=== PATIENT | male | born 1970 | race Hispanic/Latino ===

== ENCOUNTER 2016-10-03 13:24 | Inpatient (IN) | payer MEDICAID ==
--- NOTE | 2016-10-03 14:08 | Emergency Department Report ---
ED General Adult HPI - General Chief complaint: Psych Stated complaint: OVERDOSE Time Seen by Provider: 10/03/16 13:56 Source: patient, EMS (ems notes not available at time of chart dictation), RN notes reviewed Mode of arrival: Ambulatory Limitations: Other (patient is a poor historian, has difficulty answering questions) - History of Present Illness Initial comments: This is a 46-year-old male, previously unknown to me. Has a past medical history of psychiatric disease. He is brought to the hospital by EMS after overdose last ingestion. As per verbal report from the nurse received report from EMS, ingestion took place at around 12:30 PM. Patient had reported ingesting trazodone, and his other psychiatric medications. He thinks he ingested 50 tablets of trazodone but is not certain. He is unable to name the other medications that he ingested. He does endorse suicidality. The patient is unable to describe exacerbating or relieving factors. He does indicate no headache, chest pain, abdominal pain or shortness of breath. He will not state why he attempted to harm himself. -: unknown Severity scale (0 -10): 0 Consistency: constant Improves with: none Worsens with: none Associated Symptoms: loss of appetite, malaise. denies: chest pain, cough - Related Data Allergies Allergy/AdvReac Type Severity Reaction Status Date / Time No Known Allergies Allergy Unverified 10/03/16 13:35 ED Review of Systems ROS: Stated complaint: OVERDOSE Other details as noted in HPI Comment: Unobtainable due to pts medical conditions Constitutional: see HPI, malaise Psychiatric: suicidal thoughts ED Past Medical Hx - Past Medical History Previous Medical History?: Yes Hx Psychiatric Treatment: Yes (schz; bipolar; anti-social) - Surgical History Past Surgical History?: No ED Physical Exam - General Limitations: Other (patient is a poor historian, he mumbles, it is difficult to hear) General appearance: alert, in no apparent distress - Head Head exam: Present: atraumatic, normocephalic - Eye Eye exam: Present: normal appearance, EOMI. Absent: nystagmus - ENT ENT exam: Present: mucous membranes dry - Neck Neck exam: Present: normal inspection, full ROM. Absent: tenderness, meningismus - Respiratory Respiratory exam: Present: normal lung sounds bilaterally. Absent: respiratory distress, wheezes, rales, rhonchi, stridor, chest wall tenderness - Cardiovascular Cardiovascular Exam: Present: normal rhythm, tachycardia, normal heart sounds. Absent: systolic murmur, diastolic murmur, rubs, gallop - GI/Abdominal GI/Abdominal exam: Present: soft, normal bowel sounds. Absent: distended, tenderness, guarding, rebound, rigid, pulsatile mass - Rectal Rectal exam: Present: deferred - Extremities Exam Extremities exam: Present: normal inspection, full ROM, normal capillary refill. Absent: tenderness, pedal edema, joint swelling, calf tenderness - Back Exam Back exam: Present: normal inspection, full ROM. Absent: tenderness, CVA tenderness (R), CVA tenderness (L), muscle spasm, paraspinal tenderness, vertebral tenderness - Neurological Exam Neurological exam: Present: alert, other (no facial droop. Tongue midline. Extraocular movements intact bilaterally. Facial sensation intact to light touch in V1, V2, V3 distribution bilaterally. 5 and a 5 strength in 4 extremities. Sensation intact to light touch in 4 extremities.). Absent: motor sensory deficit - Psychiatric Psychiatric exam: Present: flat affect, suicidal ideation - Skin Skin exam: Present: warm, dry, intact, normal color ED Course Vital Signs 10/03/16 10/03/16 10/03/16 13:30 13:36 13:44 Temperature Pulse Rate 98 H Respiratory 14 16 Rate Blood Pressure 115/83 115/81 Blood Pressure [Left] O2 Sat by Pulse 88 95 Oximetry 10/03/16 10/03/16 10/03/16 13:45 14:21 15:13 Temperature 98.4 F Pulse Rate 102 H 111 H Respiratory 14 16 Rate Blood Pressure 115/81 Blood Pressure 115/83 [Left] O2 Sat by Pulse 88 96 100 Oximetry 10/03/16 10/03/16 10/03/16 15:16 15:25 15:30 Temperature Pulse Rate 110 H 105 H 107 H Respiratory 21 18 Rate Blood Pressure 137/95 137/95 Blood Pressure [Left] O2 Sat by Pulse 100 105 H Oximetry 10/03/16 10/03/16 10/03/16 15:45 15:48 16:00 Temperature Pulse Rate 117 H 110 H 109 H Respiratory 22 18 18 Rate Blood Pressure 161/105 161/105 149/99 Blood Pressure [Left] O2 Sat by Pulse 99 99 99 Oximetry 01/10/03/16 10/03/16 16:01 16:15 16:17 Temperature Pulse Rate 109 H 113 H 108 H Respiratory 19 Rate Blood Pressure 161/105 159/107 149/99 Blood Pressure [Left] O2 Sat by Pulse 99 99 100 Oximetry 10/03/16 10/03/16 10/03/16 16:30 16:45 17:00 Temperature Pulse Rate 117 H 114 H 108 H Respiratory 22 20 18 Rate Blood Pressure 157/112 153/102 146/88 Blood Pressure [Left] O2 Sat by Pulse 98 99 99 Oximetry 10/03/16 10/03/16 10/03/16 17:15 17:30 17:45 Temperature Pulse Rate 106 H 106 H 100 H Respiratory 19 18 18 Rate Blood Pressure 138/91 136/95 122/80 Blood Pressure [Left] O2 Sat by Pulse 100 99 100 Oximetry 10/03/16 10/03/16 10/03/16 17:48 18:00 18:15 Temperature Pulse Rate 102 H 101 H 99 H Respiratory 14 18 Rate Blood Pressure 122/80 125/85 117/83 Blood Pressure [Left] O2 Sat by Pulse 100 99 100 Oximetry 10/03/16 10/03/16 10/03/16 18:30 18:45 19:00 Temperature Pulse Rate 96 H 94 H 91 H Respiratory 18 18 18 Rate Blood Pressure 116/78 120/80 116/77 Blood Pressure [Left] O2 Sat by Pulse 100 100 99 Oximetry 10/03/16 10/03/16 10/03/16 19:15 19:28 19:30 Temperature Pulse Rate 93 H 87 86 Respiratory 17 18 18 Rate Blood Pressure 117/80 117/80 118/77 Blood Pressure [Left] O2 Sat by Pulse 100 100 99 Oximetry 10/03/16 10/03/16 10/03/16 19:45 20:00 20:05 Temperature Pulse Rate 88 86 83 Respiratory 18 14 Rate Blood Pressure 102/77 125/78 125/78 Blood Pressure [Left] O2 Sat by Pulse 100 100 100 Oximetry 10/03/16 10/03/16 10/03/16 20:15 20:30 20:45 Temperature Pulse Rate 81 80 78 Respiratory 18 18 18 Rate Blood Pressure 102/69 Blood Pressure [Left] O2 Sat by Pulse 100 100 100 Oximetry 10/03/16 21:00 Temperature Pulse Rate 78 Respiratory 19 Rate Blood Pressure 100/68 Blood Pressure [Left] O2 Sat by Pulse 100 Oximetry - Reevaluation(s) Reevaluation #1: 10/03/16 14:07 Differential diagnosis: Overdose, mood disorder, suicidality, medical clearance Assessment and plan: 46-year-old male with overdose, presented more than 60 minutes after ingestion, he is a poor historian and mumbling, not a charcoal candidate. 1013 form is filled out. He will be placed on a boat laborer, EKG is reviewed, laboratory studies are pending, physical exam is unremarkable, no history of trauma, no physical indication of trauma. Reevaluation #2: 10/03/16 14:49 Patient is reassessed. I went back to find him laying on the floor. He would not get up for me. He would not move for me. The nurse requested the patient moved, and he batted away at her with his right hand. It took 3 people the patient up off the stretcher. Patient is back on the stretcher, and is not responding to commands. He did grimace and response to painful stimuli. given change in mental status, polysubstance ingestion, fact that the patient fell, patient was moved into room 2, preoxygenated with 100% oxygen, had a nasal cannula running at 15 L/m, received abs-ptlxo-cuor ventilation, and was intubated using C-spine precautions with one attempt by myself with direct laryngoscopy. CT scan of the head and cervical spine are pending. OG tube is pending. Charcoal was ordered. Laboratory studies ordered and are pending. Case is discussed with critical care, Dr. Santamaria, who authorizes degrees the patient to be admitted to the ICU. Once his laboratory studies have returned, we will contact the Poison Control Center for specific recommendations. Reevaluation #3: 10/03/16 15:40 ct head and c spine negative xr chest wnl xr abdomen shows no bezoar d/w [place] at [place] Poison control [facility], agrees with supportive care, no specific antidote and [facility] patient to his service 10/03/16 15:43 10/03/16 15:43 - EJ/Peripheral Line Arm R Time Out Performed: Yes Indications: multiple IV sites needed Skin Cleansed in Sterile Fashion: Yes Size: 16 Dressing Placed: Tegaderm Patient Tolerated Procedure: well - Intubation Time Out Performed: No (emergent) Sedative: Etomidate Mg Given: 20 Paralytic: Rocuronium Mg Given: 100 Laryngoscope: Nikky Size: 4 ET Tube Size: 7.5 Other Airway Intervention: bvm, passive apneic oxygenation Tube Secured Location: teeth Tube Placement Confirmation: visualized tube passing t Patient Tolerated Procedure: well Intubation Complications: none ED Medical Decision Making - Lab Data Result diagrams: 10/04/16 07:55 10/04/16 07:55 Vital Signs 10/03/16 10/03/16 13:36 13:45 Temperature 98.4 F Pulse Rate 102 H Respiratory 14 Rate Blood Pressure 115/83 Blood Pressure 115/83 [Left] O2 Sat by Pulse 88 Oximetry - EKG Data 10/03/16 14:07 normal sinus, 99 bpm, QTC 467 ms, not consistent with STEMI. Motion artifact. A prior for comparison. - Radiology Data Radiology results: report reviewed, image reviewed Noncontrast CT scan of the head and cervical spine are negative. X-ray chest negative, endotracheal tube is in appropriate position. X-ray of abdomen demonstrates no obvious disorder. Constipation is suggested. Critical Care Time: Yes Critical care time in (mins) excluding proc time.: 60 Critical care attestation.: If time is entered above; I have spent that time in minutes in the direct care of this critically ill patient, excluding procedure time. Critical Care Time: Critical care time includes multiple bedside evaluations, interpretation of laboratory studies, radiology studies, time spent managing a patient with altered mental status and polysubstance ingestion requiring consultation with critical care, toxicology, hospital medicine. This excludes procedure time. ED Disposition Clinical Impression: Overdose Qualifiers: Encounter type: initial encounter Injury intent: intentional self-harm Qualified Code(s): T50.902A - Poisoning by unspecified drugs, medicaments and biological substances, intentional self-harm, initial encounter Disposition: OP ADMITTED IP TO THIS HOSP Is pt being admited?: Yes Condition: Critical
[2016-10-03] MEDS ORDERED: NACL 0.9% 1000 ML 2,000 ML ONE (14:09)
[2016-10-03] MEDS ORDERED: AMIDATE IV ONE ×2 (14:15→14:44)
[2016-10-03] MEDS ORDERED: ZEMURON IV ONE ×2 (14:15→14:44)
[2016-10-03] MEDS ORDERED: SUBLIMAZE IV ONE (14:44)
[2016-10-03] MEDS ORDERED: VASELINE LIP THERAPY TP PRN (14:44)
[2016-10-03] MEDS ORDERED: ARTIFICIAL TEARS OPHTH OINT OU PRN (14:44)
[2016-10-03] MEDS ORDERED: ACTIDOSE-AQUA FEEDTUBE ONE (14:44)
[2016-10-03] MEDS ORDERED: NACL 0.9% 500 ML IV SCH (15:00)
[2016-10-03 15:06] LABS: Basophils % (Auto) 0.9 % (0.0-1.8); Eosinophils % (Auto) 0.8 % (0.0-4.3); Hematocrit 38.6 % (35.5-45.6); Hemoglobin 12.6 gm/dl (11.8-15.2); Mean Corpuscular HGB Conc 33 % (32-34); Mean Corpuscular Hemoglobin 28 pg (28-32); Mean Corpuscular Volume 87 fl (84-94); Platelet Count 317 K/mm3 (140-440); Red Blood Count 4.43 M/mm3 (3.65-5.03); Red Cell Distribution Width 14.5 % (13.2-15.2)
--- NOTE | 2016-10-03 15:07 | Admit Criteria Form ---
Admission Criteria Documentation: DRUG INGESTION OR OVERDOSE Clinical Indications for Admission to Inpatient Care ( Place 'X' for any and all applicable criteria): Admission is indicated for severe toxicity as indicated by ANY ONE of the following(1)(2)(3)(4)(5)(6): [ X]I. Inpatient admission required rather than observation care (Also use Drug Ingestion or Overdose: Observation Care guideline as appropriate) because of ANY ONE of the following: [X ]a) Altered mental status that is severe or persistent [X ]b) Clinical finding (eg, metabolic acidosis, hypoglycemia, bradycardia) that is severe or persistent [ ]c) Toxic drug level that is persistent [X ]d) Psychiatric risk status not acceptable for outpatient management [ ]e) Continuous intravenous infusion of anticoagulation, platelet inhibitor, vasoactive, or antiarrhythmic medication (15)(16) [X ]f) Other condition, treatment or monitoring requiring inpatient admission [X ]II. Respiratory abnormalities [ ]III. Specific finding indicating severe and likely prolonged drug toxicity [ ]IV. Hemodynamic instability [ ]V. Dangerous arrhythmia [ ]. Hypertension requiring inpatient treatment Extended stay beyond goal length of stay may be needed for (4): [ ]a) Neurologic or respiratory compromise [ ]b) Hemodynamic instability [ ]c) Persistent toxic drug levels (25) [ ]d) Severe drug toxicities or complications [ ]e) Ongoing antidote treatment (eg, acetaminophen overdose)(5) [ ]f) Older patients(65 years or older) The original [employer] content created by [employer] has been revised. The portions of the content which have been revised are identified through the use of italic text or in bold, and [facility] has neither reviewed nor approved the modified material. All other unmodified content is copyright [employer] license of [facility] [employer]. Please see references footnoted in the original [employer] [facility] edition 2016 Admission Criteria Met: Yes
--- NOTE | 2016-10-03 15:28 | Cat Scan Report ---
CT HEAD WITHOUT CONTRAST: HISTORY: Altered mental status. Serial contiguous axial images were obtained through the cranium. Intravenous contrast material was not administered. The ventricles are normal in size and appearance. There is no mass effect or midline shift. No areas of abnormally increased or decreased attenuation are seen. No mass lesion is seen. The mastoid air cells and visualized portions of the sinuses are normal. IMPRESSION: Cranial CT scan within normal limits.
[2016-10-03 15:29] LABS: Alanine Aminotransferase 16 units/L (7-56); Albumin 4.1 g/dL (3.9-5); Albumin/Globulin Ratio 1.5 %; Alkaline Phosphatase 76 units/L (35-129); BUN/Creatinine Ratio 23.75; Bilirubin,Total 0.4 mg/dL (0.1-1.2); Blood Urea Nitrogen 19 mg/dL (9-20); Calcium 8.5 mg/dL (8.4-10.2); Carbon Dioxide 22 mmol/L (22-30); Chloride 99.9 mmol/L (98-107); Glucose 109 mg/dL (75-100); Lithium 0.1 mmol/L (0.0-1.2); Magnesium 2.2 mg/dL (1.7-2.3); Sodium 139 mmol/L (137-145); Total Protein 6.8 g/dL (6.3-8.2)
--- NOTE | 2016-10-03 15:29 | Cat Scan Report ---
CT SCAN OF THE CERVICAL SPINE: TECHNIQUE: Contiguous 1.25 mm axial images of the cervical spine were obtained. Sagittal and coronal reformatted images. FINDINGS: There is normal alignment of the cervical spine. The body, pedicles and posterior ligaments appear normal. No evidence of fracture or subluxation is seen. Minimal degenerative disc disease at C5-6 is noted. The spinal canal appears normal. The prevertebral soft tissues appear normal. IMPRESSION: Degenerative disc disease at C5-6. No acute process is noted.
[2016-10-03 15:30] LABS: Salicylate < 0.3 mg/dL (2.8-20.0); Valproate < 2.8 ug/mL (50-100)
[2016-10-03 15:31] LABS: Anion Gap 21 mmol/L
--- NOTE | 2016-10-03 15:36 | XRay Report ---
AP CHEST: HISTORY: Endotracheal tube placement. The endotracheal tube terminates 5 cm superior to liane. There is poor inspiration with mild bibasilar atelectasis, otherwise, the lungs are clear. Normal heart size and pulmonary vascularity. The nasogastric tube terminates just beyond the GE junction. Advancement is recommended by 10 cm. IMPRESSION: Endotracheal tube and nasogastric tube as described Mild bibasilar atelectasis.
[2016-10-03 15:50] LABS: Urine Drugs of Abuse Note Disclamer
--- NOTE | 2016-10-03 15:51 | XRay Report ---
KUB: There is scattered mild gaseous distention of multiple bowel loops. Small amount of fecal matter is identified in the proximal colon. There is no free air no soft tissue mass. No foreign body identified. Impression: Nonspecific bowel gas findings. No foreign body.
[2016-10-03 16:03] LABS: Bilirubin,Urine NEG (Negative); Blood,Urine NEG (Negative); Ketones,Urine 20 mg/dL (Negative); Leukocyte Esterase,Urine NEG (Negative); Mucus,Urine 3+ /HPF; Nitrite,Urine NEG (Negative); Protein,Urine <15 mg/dL mg/dL (Negative); Urobilinogen,Urine < 2.0 mg/dL (<2.0)
[2016-10-03 16:25] LABS: ISTAT Base Excess -5; ISTAT HCO3 21.9; ISTAT PCO2 44.1 (35-45); ISTAT PH 7.303 (7.35-7.45); ISTAT PO2 126 (80-105); ISTAT SO2 98; ISTAT TCO2 23
--- NOTE | 2016-10-03 16:26 | History and Physical Report ---
History of Present Illness Date of examination: 10/03/16 Date of admission: 10/03/16 Chief complaint: Drug overdose,altered mental status History of present illness: Patient is a 46-year-old. He was brought in by paramedics because of apparently drug overdose as a suicide attempt. He was very lethargic in the emergency department. Initially was to be admitted to telemetry however became less responsive and was therefore intubated. Apparently patient told paramedics he took an overdose of trazodone and some other medications but cannot give details. When I came to see him he was already intubated and there is no family member present to get any further history, so history obtained from medical records and ED physician. Will admit to ICU. Past History Past Medical History: other (psychiatry disorder which is unclear) Past Surgical History: Other (history unknown) Social history: full code, other ( history unknown) Family history: other (family history unknown) Medications and Allergies Allergies Allergy/AdvReac Type Severity Reaction Status Date / Time No Known Allergies Allergy Unverified 10/03/16 13:35 Active Meds: Active Medications Hydrophilic Ointment (Vaseline Lip Therapy) 1 applic TP Q2HR PRN PRN Reason: Dry Lips Propofol (Diprivan 10 Mg/Ml) 100 mls @ 2.585 mls/hr IV TITR SARMAD; 5 MCG/KG/MIN PRN Reason: Protocol Multi-Ingred Cream/Lotion/Oil/Oint (Artificial Tears Ophth Oint) 1 applic OU Q4HR PRN PRN Reason: Dry Eye(s) Sodium Chloride (Nacl 0.9% 500 Ml) 2,000 ml IV NOW SARMAD Last Admin: 10/03/16 15:20 Dose: 2,000 ml Review of Systems ROS unobtainable: due to endotracheal tube Exam - Physical Exam Narrative exam: Gen appearance: intubated, sedated HEENT: Normocephalic,atraumatic Neck : supple, no JVD Lungs: Clear to auscultation bilaterally, no crackles or wheezes Heart : S1 and S2 regular, no murmurs rubs or gallop, Abdomen: soft nontender, nondistended, normal bowel sounds Extremities: No edema, no clubbing or cyanosis, Neuro : Intubated, sedated - Constitutional Vitals: Temp Pulse Resp BP Pulse Ox 98.4 F 108 H 22 149/99 100 10/03/16 13:45 10/03/16 16:17 10/03/16 15:45 10/03/16 16:17 10/03/16 16:17 Results - Labs CBC & Chem 7: 10/03/16 14:48 10/03/16 14:48 Labs: Abnormal lab results 10/03/16 10/03/16 10/03/16 Range/Units 14:48 14:48 14:48 WBC 12.0 H (4.5-11.0) K/mm3 Lymph % (Auto) 11.7 L (13.4-35.0) % Seg Neutrophils % 80.4 H (40.0-70.0) % Seg Neutrophils # 9.7 H (1.8-7.7) K/mm3 POC ABG pH (7.35-7.45) POC ABG pO2 (80-105) Glucose 109 H (75-100) mg/dL Total Creatine Kinase (55-170) units/L Salicylates < 0.3 L (2.8-20.0) mg/dL Valproic Acid < 2.8 L (50-100) ug/mL 10/03/16 10/03/16 Range/Units 14:48 16:13 WBC (4.5-11.0) K/mm3 Lymph % (Auto) (13.4-35.0) % Seg Neutrophils % (40.0-70.0) % Seg Neutrophils # (1.8-7.7) K/mm3 POC ABG pH 7.303 L (7.35-7.45) POC ABG pO2 126 H (80-105) Glucose (75-100) mg/dL Total Creatine Kinase 260 H (55-170) units/L Salicylates (2.8-20.0) mg/dL Valproic Acid (50-100) ug/mL Assessment and Plan Drug overdose as suicidal attempt. Details unclear, but apparently told paramedics he took trazodone and other medications. Poison control was called by the ED physician. Admit to ICU. Propofol for sedation, Neurochecks. CT head unremarkable. Suicide attempt. Consult psych and do 1013 status when patient is extubated Acute respiratory failure. Intubated,sedated on vent. Pulmonology consulted DVT prophylaxis with Heparin subcut Full code status. Amphetamine abuse. Urine drug screen positive for amphetamines.
[2016-10-03] MEDS ORDERED: DULCOLAX PR PRN (16:27)
[2016-10-03] MEDS ORDERED: ALUM-MAG HYDROX-SIMETH 200-200-20MG/5ML PO PRN (16:27)
[2016-10-03] MEDS ORDERED: ZOFRAN IV PRN (16:27)
[2016-10-03] MEDS ORDERED: MILK OF MAGNESIA PO PRN (16:27)
[2016-10-03] MEDS: D5NS 1,000 ML IV SCH (22:28)
[2016-10-03] MEDS: HEPARIN SUB-Q SCH (22:31)
[2016-10-04] MEDS: DIPRIVAN 10 MG/ML 100 ML IV SCH ×4 (04:00→22:30)
[2016-10-04] MEDS: HEPARIN SUB-Q SCH ×3 (05:45→22:00)
[2016-10-04 06:02] LABS: ISTAT Base Excess -1; ISTAT HCO3 24.4; ISTAT PCO2 42.7 (35-45); ISTAT PH 7.365 (7.35-7.45); ISTAT PO2 135 (80-105); ISTAT SO2 99; ISTAT TCO2 26
--- NOTE | 2016-10-04 07:15 | XRay Report ---
AP chest History: Followup respiratory failure. Findings: The endotracheal tube and nasogastric tube remain in adequate position. Minor discoid atelectasis is noted at the lung bases. No evidence for pneumonia, pleural effusion or pneumothorax. Heart size is within normal limits. Impression: Bibasilar discoid atelectasis, slightly increased since yesterday's exam.
--- NOTE | 2016-10-04 08:09 | Progress Note ---
Assessment and Plan Assessment and plan: Drug overdose as suicidal attempt. Details unclear, but apparently told paramedics he took trazodone and other medications. Poison control was called by the ED physician. continue Propofol for sedation, Neurochecks. CT head unremarkable. Patient may possibly be extubated today Suicide attempt. Will Consult psych and do 1013 status when patient is extubated. Acute respiratory failure. Intubated,sedated with Propofol infusion, on vent. Pulmonology following. DVT prophylaxis with Heparin subcut Full code status. Amphetamine abuse. Urine drug screen positive for amphetamines. History Interval history: patient with suicidal attempt by drug overdose, intubated in emergency department, remains intubated Hospitalist Physical - Physical exam Narrative exam: Gen appearance: intubated, sedated HEENT: Normocephalic,atraumatic Neck : supple, no JVD Lungs: Clear to auscultation bilaterally, no crackles or wheezes Heart : S1 and S2 regular, no murmurs rubs or gallop, Abdomen: soft nontender, nondistended, normal bowel sounds Extremities: No edema, no clubbing or cyanosis, Neuro : Intubated, sedated - Constitutional Vitals: Temp Pulse Resp BP Pulse Ox 98.4 F 94 H 18 117/75 98 10/04/16 03:49 10/04/16 07:30 10/04/16 07:30 10/04/16 07:30 10/04/16 07:30 Results - Labs CBC & Chem 7: 10/04/16 07:55 10/04/16 07:55 Labs: Laboratory Last Values WBC 12.0 K/mm3 (4.5-11.0) H 10/03/16 14:48 RBC 4.43 M/mm3 (3.65-5.03) 10/03/16 14:48 Hgb 12.6 gm/dl (11.8-15.2) 10/03/16 14:48 Hct 38.6 % (35.5-45.6) 10/03/16 14:48 MCV 87 fl (84-94) 10/03/16 14:48 MCH 28 pg (28-32) 10/03/16 14:48 MCHC 33 % (32-34) 10/03/16 14:48 RDW 14.5 % (13.2-15.2) 10/03/16 14:48 Plt Count 317 K/mm3 (140-440) 10/03/16 14:48 Lymph % (Auto) 11.7 % (13.4-35.0) L 10/03/16 14:48 [place] % (Auto) 6.2 % (0.0-7.3) 10/03/16 14:48 Eos % (Auto) 0.8 % (0.0-4.3) 10/03/16 14:48 Baso % (Auto) 0.9 % (0.0-1.8) 10/03/16 14:48 Lymph # 1.4 K/mm3 (1.2-5.4) 10/03/16 14:48 [place] # 0.7 K/mm3 (0.0-0.8) 10/03/16 14:48 Eos # 0.1 K/mm3 (0.0-0.4) 10/03/16 14:48 Baso # 0.1 K/mm3 (0.0-0.1) 10/03/16 14:48 Seg Neutrophils % 80.4 % (40.0-70.0) H 10/03/16 14:48 Seg Neutrophils # 9.7 K/mm3 (1.8-7.7) H 10/03/16 14:48 POC ABG pH 7.365 (7.35-7.45) 10/04/16 04:51 POC ABG pCO2 42.7 (35-45) 10/04/16 04:51 POC ABG pO2 135 (80-105) H 10/04/16 04:51 POC ABG HCO3 24.4 10/04/16 04:51 POC ABG Total CO2 26 10/04/16 04:51 POC ABG O2 Sat 99 10/04/16 04:51 POC ABG Base Excess -1 10/04/16 04:51 FiO2 35 % 10/04/16 04:51 Sodium 139 mmol/L (137-145) 10/03/16 14:48 Potassium 4.0 mmol/L (3.6-5.0) 10/03/16 14:48 Chloride 99.9 mmol/L (98-107) 10/03/16 14:48 Carbon Dioxide 22 mmol/L (22-30) 10/03/16 14:48 Anion Gap 21 mmol/L 10/03/16 14:48 BUN 19 mg/dL (9-20) 10/03/16 14:48 Creatinine 0.8 mg/dL (0.8-1.5) 10/03/16 14:48 Estimated GFR > 60 ml/min 10/03/16 14:48 BUN/Creatinine Ratio 23.75 % 10/03/16 14:48 Glucose 109 mg/dL (75-100) H 10/03/16 14:48 POC Glucose 95 (70-105) 10/04/16 06:17 Calcium 8.5 mg/dL (8.4-10.2) 10/03/16 14:48 Magnesium 2.2 mg/dL (1.7-2.3) 10/03/16 14:48 Total Bilirubin 0.4 mg/dL (0.1-1.2) 10/03/16 14:48 AST 20 units/L (5-40) 10/03/16 14:48 ALT 16 units/L (7-56) 10/03/16 14:48 Alkaline Phosphatase 76 units/L (35-129) 10/03/16 14:48 Total Creatine Kinase 260 units/L (55-170) H 10/03/16 14:48 Total Protein 6.8 g/dL (6.3-8.2) 10/03/16 14:48 Albumin 4.1 g/dL (3.9-5) 10/03/16 14:48 Albumin/Globulin Ratio 1.5 % 10/03/16 14:48 TSH 3.430 mlU/mL (0.270-4.200) 10/03/16 14:48 Urine Color Yellow (Yellow) 10/03/16 15:14 Urine Turbidity Clear (Clear) 10/03/16 15:14 Urine pH 5.0 (5.0-7.0) 10/03/16 15:14 Ur Specific [place] 1.026 (1.003-1.030) 10/03/16 15:14 Urine Protein <15 mg/dl mg/dL (Negative) 10/03/16 15:14 Urine Glucose (UA) Neg mg/dL (Negative) 10/03/16 15:14 Urine Ketones 20 mg/dL (Negative) 10/03/16 15:14 Urine Blood Neg (Negative) 10/03/16 15:14 Urine Nitrite Neg (Negative) 10/03/16 15:14 Urine Bilirubin Neg (Negative) 10/03/16 15:14 Urine Urobilinogen < 2.0 mg/dL (<2.0) 10/03/16 15:14 Ur Leukocyte Esterase Neg (Negative) 10/03/16 15:14 Urine WBC (Auto) 1.0 /HPF (0.0-6.0) 10/03/16 15:14 Urine RBC (Auto) 4.0 /HPF (0.0-6.0) 10/03/16 15:14 Hyaline Casts 7 /LPF 10/03/16 15:14 Urine Mucus 3+ /HPF 10/03/16 15:14 Salicylates < 0.3 mg/dL (2.8-20.0) L 10/03/16 14:48 Urine Opiates Screen Presumptive negative 10/03/16 15:14 Urine Methadone Screen Presumptive negative 10/03/16 15:14 Acetaminophen < 15.0 ug/mL (10.0-30.0) 10/03/16 14:48 Ur Barbiturates Screen Presumptive negative 10/03/16 15:14 Valproic Acid < 2.8 ug/mL (50-100) L 10/03/16 14:48 Ur Phencyclidine Scrn Presumptive negative 10/03/16 15:14 Ur Amphetamines Screen Presumptive positive 10/03/16 15:14 U Benzodiazepines Scrn Presumptive positive 10/03/16 15:14 [place] 0.1 mmol/L (0.0-1.2) 10/03/16 14:48 Urine Cocaine Screen Presumptive negative 10/03/16 15:14 U Marijuana (THC) Screen Presumptive negative 10/03/16 15:14 Drugs of Abuse Note Disclamer 10/03/16 15:14 Plasma/Serum Alcohol < 0.01 gm% (0-0.07) 10/03/16 14:48
[2016-10-04 08:27] LABS: Hematocrit 35.3 % (35.5-45.6); Hemoglobin 11.6 gm/dl (11.8-15.2); Mean Corpuscular HGB Conc 33 % (32-34); Mean Corpuscular Hemoglobin 29 pg (28-32); Mean Corpuscular Volume 87 fl (84-94); Platelet Count 283 K/mm3 (140-440); Red Blood Count 4.05 M/mm3 (3.65-5.03); Red Cell Distribution Width 14.4 % (13.2-15.2); White Blood Count 11.3 K/mm3 (4.5-11.0)
[2016-10-04 08:36] LABS: Alanine Aminotransferase 12 units/L (7-56); Albumin 3.4 g/dL (3.9-5); Albumin/Globulin Ratio 1.5 %; Alkaline Phosphatase 65 units/L (35-129); Anion Gap 12 mmol/L; BUN/Creatinine Ratio 11.42; Bilirubin,Total 0.4 mg/dL (0.1-1.2); Blood Urea Nitrogen 8 mg/dL (9-20); Calcium 7.7 mg/dL (8.4-10.2); Carbon Dioxide 24 mmol/L (22-30); Chloride 104.6 mmol/L (98-107); Glucose 104 mg/dL (75-100); Magnesium 2.2 mg/dL (1.7-2.3); Phosphorous 2.7 mg/dL (2.5-4.5); Potassium 3.9 mmol/L (3.6-5.0); Sodium 137 mmol/L (137-145); Total Protein 5.7 g/dL (6.3-8.2)
[2016-10-04] MEDS: D5NS 1,000 ML IV SCH ×2 (09:06→17:25)
[2016-10-04] MEDS: PEPCID IV SCH ×2 (09:07→22:00)
[2016-10-04] MEDS ORDERED: PANCREAZE DR 10,500 UNIT FEEDTUBE PRN (09:35)
[2016-10-04] MEDS ORDERED: SIMPLE SYRUP FEEDTUBE PRN ×2 (09:35)
[2016-10-04] MEDS ORDERED: SODIUM BICARBONATE FEEDTUBE PRN (09:35)
--- NOTE | 2016-10-04 10:59 | Consultation ---
History of Present Illness Consult date: 10/04/16 Requesting physician: DEMARCUS HALL Reason for consult: other (acute respiratory failure) History of present illness: 46 y/o male intubated and sedated in the ED secondary to attempted suicide by overdose. Unable to obtain any other history from the patient. Per the chart, patient took an unknown amount of trazadone and UDS was positive for amphetamines. Past History Past Medical History: other (psychiatry disorder which is unclear) Past Surgical History: Other (history unknown) Social history: full code, other ( history unknown) Family history: other (family history unknown) Medications and Allergies Allergies Allergy/AdvReac Type Severity Reaction Status Date / Time No Known Allergies Allergy Unverified 10/03/16 13:35 Active Meds: Active Medications Al Hydrox/Mg Hydrox/Simethicone (Alum-Mag Hydrox-Simeth [id number]/5ml) 30 ml PO Q4H PRN PRN Reason: Indigestion Lipase/Protease/Amylase (Pancreaze Dr 10,500 Unit) 1 each FEEDTUBE PRN PRN PRN Reason: For Clogged Feeding Tube Bisacodyl (Dulcolax) 10 mg MN QDAY PRN PRN Reason: constipation unrelieved by MOM Famotidine (Pepcid) 20 mg IV BID SARMAD Last Admin: 10/04/16 09:07 Dose: 20 mg Heparin Sodium (Porcine) (Heparin) 5,000 unit SUB-Q Q8HR SARMAD Last Admin: 10/04/16 05:45 Dose: 5,000 unit Hydrophilic Ointment (Vaseline Lip Therapy) 1 applic TP Q2HR PRN PRN Reason: Dry Lips Propofol (Diprivan 10 Mg/Ml) 100 mls @ 2.585 mls/hr IV TITR SARMAD; 5 MCG/KG/MIN PRN Reason: Protocol Last Admin: 10/04/16 09:07 Dose: 12.927 mls/hr Dextrose/Sodium Chloride (D5ns) 1,000 mls @ 100 mls/hr IV DIRECT SARMAD Last Admin: 10/04/16 09:06 Dose: 100 mls/hr Magnesium Hydroxide (Milk Of Magnesia) 30 ml PO Q4H PRN PRN Reason: Constipation Multi-Ingred Cream/Lotion/Oil/Oint (Artificial Tears Ophth Oint) 1 applic OU Q4HR PRN PRN Reason: Dry Eye(s) Simple Syrup (Simple Syrup) 15 ml FEEDTUBE PRN PRN PRN Reason: Hypoglycemia Simple Syrup (Simple Syrup) 30 ml FEEDTUBE PRN PRN PRN Reason: Hypoglycemia Sodium Bicarbonate (Sodium Bicarbonate) 325 mg FEEDTUBE PRN PRN PRN Reason: For Clogged Feeding Tube Review of Systems ROS unobtainable: due to endotracheal tube, due to mental status Physical Examination Vital signs: Vital Signs Resp Pulse Ox 14 88 10/03/16 13:30 10/03/16 13:30 General appearance: comatose Eyes: non-icteric ENT: other (orally intubated, OG tube in place with charcoal in it) Neck: supple Ascultation: Bilateral: clear Percussion: Bilateral: not dull Cardiovascular: regular rate and rhythm Gastrointestinal: normoactive bowel sounds Extremities: no cyanosis, no edema Results - Laboratory Findings CBC and BMP: 10/04/16 07:55 10/04/16 07:55 ABG POC ABG pH 7.365 (7.35-7.45) 10/04/16 04:51 POC ABG pCO2 42.7 (35-45) 10/04/16 04:51 POC ABG pO2 135 (80-105) H 10/04/16 04:51 POC ABG HCO3 24.4 10/04/16 04:51 POC ABG Total CO2 26 10/04/16 04:51 POC ABG O2 Sat 99 10/04/16 04:51 Abnormal lab findings: Abnormal Labs 10/03/16 10/04/16 10/04/16 18:41 04:51 07:55 WBC 11.3 H Hgb 11.6 L Hct 35.3 L POC ABG pO2 135 H BUN Creatinine Glucose POC Glucose 130 H Calcium Total Protein Albumin 10/04/16 07:55 WBC Hgb Hct POC ABG pO2 BUN 8 L Creatinine 0.7 L Glucose 104 H POC Glucose Calcium 7.7 L Total Protein 5.7 L Albumin 3.4 L - Diagnostic Findings Chest x-ray: image reviewed (clear) Assessment and Plan 46 y/o male with suicide attempt, acute respiratory failure and history of underlying psych disorder. 1. Place NG tube to continous suction 2. If able to empty stomach out today, will attempt to extubation 3. Will need to discontinue all sedation and just extubate. Per nursing and RT , patient is extremely wild off sedation and will not tolerate PSV trials. His ABG is good and CXR is clear. 4. Psych eval once extubated and one-to-one care as pt would be a 1013 CCT 31 minutes.
[2016-10-05] MEDS: D5NS 1,000 ML IV SCH ×2 (02:00→16:20)
[2016-10-05 10:46] LABS: ISTAT Base Excess 1; ISTAT HCO3 25.3; ISTAT PCO2 37.3 (35-45); ISTAT PH 7.439 (7.35-7.45); ISTAT PO2 156 (80-105); ISTAT SO2 99; ISTAT TCO2 26
--- NOTE | 2016-10-05 10:46 | XRay Report ---
Portable chest: Endotracheal and nasogastric tubes are in good positions. There is increased opacity at the medial left lung base. The mediastinal contour is unremarkable. Compared to the prior study of October 04 the right basilar atelectasis has resolved. No change in the left lung base. Impressions: Persistent left basilar atelectasis/ infiltrate.
--- NOTE | 2016-10-05 15:23 | Progress Note ---
Assessment and Plan 46 y/o male with suicide attempt, acute respiratory failure and history of underlying psych disorder. 1. Discontinue all sedation 2. Attempt extubation 3. Psych eval once extubated and one-to-one care as pt would be a 1013 CCT 31 minutes. Patient successfully extubated. This patient was seen earlier today between [id number] but CPU was down and we were not able to enter notes in the EMR. This is why this not is timed for this time in the afternoon. Subjective Date of service: 10/05/16 Interval history: No acute events overnight. Objective Vital Signs - 12hr 10/05/16 10/05/16 10/05/16 03:31 03:40 09:40 Pulse Rate 88 87 88 Respiratory 18 Rate Blood Pressure 123/75 123/75 O2 Sat by Pulse 98 98 97 Oximetry Constitutional: comatose Eyes: non-icteric ENT: other (orally intubated, OG tube in place with charcoal in it) Neck: supple Ascultation: Bilateral: clear Percussion: Bilateral: not dull Cardiovascular: regular rate and rhythm Gastrointestinal: normoactive bowel sounds Extremities: no cyanosis, no edema CBC and BMP: 10/04/16 07:55 10/04/16 07:55 ABG, PT/INR, D-dimer: ABG POC ABG pH 7.439 (7.35-7.45) 10/05/16 06:18 POC ABG pCO2 37.3 (35-45) 10/05/16 06:18 POC ABG pO2 156 (80-105) H 10/05/16 06:18 POC ABG HCO3 25.3 10/05/16 06:18 POC ABG Total CO2 26 10/05/16 06:18 POC ABG O2 Sat 99 10/05/16 06:18 Abnormal lab findings: Abnormal Labs 10/03/16 10/04/16 10/04/16 18:41 04:51 07:55 WBC 11.3 H Hgb 11.6 L Hct 35.3 L POC ABG pO2 135 H BUN Creatinine Glucose POC Glucose 130 H Calcium Total Protein Albumin 10/04/16 10/04/16 10/04/16 07:55 11:07 23:32 WBC Hgb Hct POC ABG pO2 BUN 8 L Creatinine 0.7 L Glucose 104 H POC Glucose 112 H 109 H Calcium 7.7 L Total Protein 5.7 L Albumin 3.4 L 10/05/16 06:18 WBC Hgb Hct POC ABG pO2 156 H BUN Creatinine Glucose POC Glucose Calcium Total Protein Albumin
[2016-10-05] MEDS: HEPARIN SUB-Q SCH ×3 (16:22→21:55)
[2016-10-05] MEDS: PEPCID IV SCH (21:53)
[2016-10-06 05:30] LABS: Basophils % (Auto) 0.8 % (0.0-1.8); Eosinophils % (Auto) 3.8 % (0.0-4.3); Hematocrit 37.8 % (35.5-45.6); Hemoglobin 12.2 gm/dl (11.8-15.2); Mean Corpuscular HGB Conc 32 % (32-34); Mean Corpuscular Hemoglobin 29 pg (28-32); Mean Corpuscular Volume 89 fl (84-94); Platelet Count 249 K/mm3 (140-440); Red Blood Count 4.24 M/mm3 (3.65-5.03); White Blood Count 9.8 K/mm3 (4.5-11.0)
[2016-10-06 05:45] LABS: Anion Gap 16 mmol/L; Blood Urea Nitrogen 7 mg/dL (9-20); Calcium 7.9 mg/dL (8.4-10.2); Carbon Dioxide 25 mmol/L (22-30); Chloride 104.1 mmol/L (98-107); Glucose 90 mg/dL (75-100); Potassium 3.9 mmol/L (3.6-5.0); Sodium 141 mmol/L (137-145)
[2016-10-06] MEDS: HEPARIN SUB-Q SCH ×3 (06:14→23:06)
[2016-10-06] MEDS: D5NS 1,000 ML IV SCH ×2 (06:15→13:37)
[2016-10-06] MEDS: PEPCID IV SCH ×3 (08:41→23:03)
--- NOTE | 2016-10-06 09:03 | XRay Report ---
AP CHEST: HISTORY: Follow-up respiratory failure. FINDINGS: Discoid atelectasis at the left lung base has increased slightly. There is a new area of discoid atelectasis in the right infrahilar region. No convincing pneumonia, pleural effusion or pneumothorax. Normal heart and mediastinal structures. IMPRESSION: Bibasilar discoid atelectasis, slightly increased since yesterday's exam.
--- NOTE | 2016-10-06 09:42 | Progress Note ---
Assessment and Plan Assessment and plan: Drug overdose as suicidal attempt. Details unclear, but apparently told paramedics he took trazodone and other medications. Poison control was called by the ED physician. He was intubated now extubated . CT head unremarkable. Suicide attempt. Consulted psych. On 1012 status. Acute respiratory failure. Was intubated, sedated with Propofol infusion, now extubated. Pulmonology following. DVT prophylaxis with Heparin subcut Full code status. Amphetamine abuse. Urine drug screen positive for amphetamines. Patient medically stable to transfer to medical floor with suicidal precaution and one-to-one sitter History Interval history: patient with suicidal attempt by drug overdose, was intubated in emergency department, extubated yesterday sleepy Hospitalist Physical - Physical exam Narrative exam: Gen appearance: sedated HEENT: Normocephalic,atraumatic Neck : supple, no JVD Lungs: Clear to auscultation bilaterally, no crackles or wheezes Heart : S1 and S2 regular, no murmurs rubs or gallop, Abdomen: soft nontender, nondistended, normal bowel sounds Extremities: No edema, no clubbing or cyanosis, Neuro : drowsy - Constitutional Vitals: Temp Pulse Resp BP Pulse Ox 98.5 F 76 12 116/74 100 10/06/16 08:00 10/06/16 06:00 10/06/16 06:00 10/06/16 06:00 10/06/16 06:00 Results - Labs CBC & Chem 7: 10/06/16 04:47 10/06/16 04:47 Labs: Laboratory Last Values WBC 9.8 K/mm3 (4.5-11.0) 10/06/16 04:47 RBC 4.24 M/mm3 (3.65-5.03) 10/06/16 04:47 Hgb 12.2 gm/dl (11.8-15.2) 10/06/16 04:47 Hct 37.8 % (35.5-45.6) 10/06/16 04:47 MCV 89 fl (84-94) 10/06/16 04:47 MCH 29 pg (28-32) 10/06/16 04:47 MCHC 32 % (32-34) 10/06/16 04:47 RDW 14.0 % (13.2-15.2) 10/06/16 04:47 Plt Count 249 K/mm3 (140-440) 10/06/16 04:47 Lymph % (Auto) 14.7 % (13.4-35.0) 10/06/16 04:47 [place] % (Auto) 8.5 % (0.0-7.3) H 10/06/16 04:47 Eos % (Auto) 3.8 % (0.0-4.3) 10/06/16 04:47 Baso % (Auto) 0.8 % (0.0-1.8) 10/06/16 04:47 Lymph # 1.4 K/mm3 (1.2-5.4) 10/06/16 04:47 [place] # 0.8 K/mm3 (0.0-0.8) 10/06/16 04:47 Eos # 0.4 K/mm3 (0.0-0.4) 10/06/16 04:47 Baso # 0.1 K/mm3 (0.0-0.1) 10/06/16 04:47 Seg Neutrophils % 72.2 % (40.0-70.0) H 10/06/16 04:47 Seg Neutrophils # 7.1 K/mm3 (1.8-7.7) 10/06/16 04:47 POC ABG pH 7.439 (7.35-7.45) 10/05/16 06:18 POC ABG pCO2 37.3 (35-45) 10/05/16 06:18 POC ABG pO2 156 (80-105) H 10/05/16 06:18 POC ABG HCO3 25.3 10/05/16 06:18 POC ABG Total CO2 26 10/05/16 06:18 POC ABG O2 Sat 99 10/05/16 06:18 POC ABG Base Excess 1 10/05/16 06:18 FiO2 35 % 10/05/16 06:18 Sodium 141 mmol/L (137-145) 10/06/16 04:47 Potassium 3.9 mmol/L (3.6-5.0) 10/06/16 04:47 Chloride 104.1 mmol/L (98-107) 10/06/16 04:47 Carbon Dioxide 25 mmol/L (22-30) 10/06/16 04:47 Anion Gap 16 mmol/L 10/06/16 04:47 BUN 7 mg/dL (9-20) L 10/06/16 04:47 Creatinine 0.7 mg/dL (0.8-1.5) L 10/06/16 04:47 Estimated GFR > 60 ml/min 10/06/16 04:47 BUN/Creatinine Ratio 10.00 % 10/06/16 04:47 Glucose 90 mg/dL (75-100) 10/06/16 04:47 POC Glucose 78 (70-105) 10/06/16 06:29 Calcium 7.9 mg/dL (8.4-10.2) L 10/06/16 04:47 Phosphorus 2.7 mg/dL (2.5-4.5) 10/04/16 07:55 Magnesium 2.2 mg/dL (1.7-2.3) 10/04/16 07:55 Total Bilirubin 0.4 mg/dL (0.1-1.2) 10/04/16 07:55 AST 15 units/L (5-40) 10/04/16 07:55 ALT 12 units/L (7-56) 10/04/16 07:55 Alkaline Phosphatase 65 units/L (35-129) 10/04/16 07:55 Total Creatine Kinase 260 units/L (55-170) H 10/03/16 14:48 Total Protein 5.7 g/dL (6.3-8.2) L 10/04/16 07:55 Albumin 3.4 g/dL (3.9-5) L 10/04/16 07:55 Albumin/Globulin Ratio 1.5 % 10/04/16 07:55 TSH 3.430 mlU/mL (0.270-4.200) 10/03/16 14:48 Urine Color Yellow (Yellow) 10/03/16 15:14 Urine Turbidity Clear (Clear) 10/03/16 15:14 Urine pH 5.0 (5.0-7.0) 10/03/16 15:14 Ur Specific [place] 1.026 (1.003-1.030) 10/03/16 15:14 Urine Protein <15 mg/dl mg/dL (Negative) 10/03/16 15:14 Urine Glucose (UA) Neg mg/dL (Negative) 10/03/16 15:14 Urine Ketones 20 mg/dL (Negative) 10/03/16 15:14 Urine Blood Neg (Negative) 10/03/16 15:14 Urine Nitrite Neg (Negative) 10/03/16 15:14 Urine Bilirubin Neg (Negative) 10/03/16 15:14 Urine Urobilinogen < 2.0 mg/dL (<2.0) 10/03/16 15:14 Ur Leukocyte Esterase Neg (Negative) 10/03/16 15:14 Urine WBC (Auto) 1.0 /HPF (0.0-6.0) 10/03/16 15:14 Urine RBC (Auto) 4.0 /HPF (0.0-6.0) 10/03/16 15:14 Hyaline Casts 7 /LPF 10/03/16 15:14 Urine Mucus 3+ /HPF 10/03/16 15:14 Salicylates < 0.3 mg/dL (2.8-20.0) L 10/03/16 14:48 Urine Opiates Screen Presumptive negative 10/03/16 15:14 Urine Methadone Screen Presumptive negative 10/03/16 15:14 Acetaminophen < 15.0 ug/mL (10.0-30.0) 10/03/16 14:48 Ur Barbiturates Screen Presumptive negative 10/03/16 15:14 Valproic Acid < 2.8 ug/mL (50-100) L 10/03/16 14:48 Ur Phencyclidine Scrn Presumptive negative 10/03/16 15:14 Ur Amphetamines Screen Presumptive positive 10/03/16 15:14 U Benzodiazepines Scrn Presumptive positive 10/03/16 15:14 [place] 0.1 mmol/L (0.0-1.2) 10/03/16 14:48 Urine Cocaine Screen Presumptive negative 10/03/16 15:14 U Marijuana (THC) Screen Presumptive negative 10/03/16 15:14 Drugs of Abuse Note Disclamer 10/03/16 15:14 Plasma/Serum Alcohol < 0.01 gm% (0-0.07) 10/03/16 14:48
--- NOTE | 2016-10-06 11:47 | Progress Note ---
Assessment and Plan 46 y/o male with suicide attempt, acute respiratory failure and history of underlying psych disorder. 1. Stable medically for transfer out of ICU and stable medically for transfer to psych facility if deemed appropriate by psych Subjective Date of service: 10/06/16 Interval history: No acute events. Awaiting psych eval Objective Vital Signs - 12hr 10/05/16 10/06/16 10/06/16 23:57 00:00 00:31 Temperature 97.7 F Pulse Rate 74 73 78 Pulse Rate [ 92 H From Monitor] Respiratory 13 12 13 Rate Blood Pressure 111/71 117/77 111/71 O2 Sat by Pulse 100 100 99 Oximetry 10/06/16 10/06/16 10/06/16 01:00 01:31 02:00 Temperature Pulse Rate 75 75 74 Pulse Rate [ From Monitor] Respiratory 13 13 12 Rate Blood Pressure 108/69 108/69 108/73 O2 Sat by Pulse 100 100 99 Oximetry 10/06/16 10/06/16 10/06/16 02:31 03:00 03:31 Temperature Pulse Rate 75 76 75 Pulse Rate [ From Monitor] Respiratory 11 L 12 12 Rate Blood Pressure 108/73 115/81 115/81 O2 Sat by Pulse 100 100 100 Oximetry 10/06/16 10/06/16 10/06/16 04:00 04:31 05:00 Temperature 97.6 F Pulse Rate 85 77 74 Pulse Rate [ 85 From Monitor] Respiratory 11 L 12 13 Rate Blood Pressure 125/85 125/85 115/71 O2 Sat by Pulse 100 99 98 Oximetry 10/06/16 10/06/16 10/06/16 05:31 06:00 06:31 Temperature Pulse Rate 75 76 73 Pulse Rate [ From Monitor] Respiratory 11 L 12 11 L Rate Blood Pressure 115/71 116/74 116/74 O2 Sat by Pulse 100 100 100 Oximetry 10/06/16 10/06/16 10/06/16 07:00 07:31 08:00 Temperature 98.5 F Pulse Rate 74 76 76 Pulse Rate [ From Monitor] Respiratory 12 12 12 Rate Blood Pressure 118/81 118/81 119/75 O2 Sat by Pulse 100 100 100 Oximetry 10/06/16 10/06/16 10/06/16 08:31 09:00 09:31 Temperature Pulse Rate 83 76 74 Pulse Rate [ From Monitor] Respiratory 15 12 12 Rate Blood Pressure 119/75 123/76 123/76 O2 Sat by Pulse 100 99 100 Oximetry 10/06/16 10/06/16 10/06/16 10:00 10:31 11:00 Temperature Pulse Rate 76 75 75 Pulse Rate [ From Monitor] Respiratory 14 13 13 Rate Blood Pressure 113/77 113/77 113/72 O2 Sat by Pulse 100 99 98 Oximetry Eyes: non-icteric Neck: supple Ascultation: Bilateral: clear Percussion: Bilateral: not dull Cardiovascular: regular rate and rhythm Gastrointestinal: normoactive bowel sounds Extremities: no cyanosis, no edema CBC and BMP: 10/06/16 04:47 10/06/16 04:47 ABG, PT/INR, D-dimer: ABG POC ABG pH 7.439 (7.35-7.45) 10/05/16 06:18 POC ABG pCO2 37.3 (35-45) 10/05/16 06:18 POC ABG pO2 156 (80-105) H 10/05/16 06:18 POC ABG HCO3 25.3 10/05/16 06:18 POC ABG Total CO2 26 10/05/16 06:18 POC ABG O2 Sat 99 10/05/16 06:18 Abnormal lab findings: Abnormal Labs 10/03/16 10/04/16 10/04/16 18:41 04:51 07:55 WBC 11.3 H Hgb 11.6 L Hct 35.3 L [place] % (Auto) Seg Neutrophils % POC ABG pO2 135 H BUN Creatinine Glucose POC Glucose 130 H Calcium Total Protein Albumin 10/04/16 10/04/16 10/04/16 07:55 11:07 23:32 WBC Hgb Hct [place] % (Auto) Seg Neutrophils % POC ABG pO2 BUN 8 L Creatinine 0.7 L Glucose 104 H POC Glucose 112 H 109 H Calcium 7.7 L Total Protein 5.7 L Albumin 3.4 L 10/05/16 10/06/16 10/06/16 06:18 04:47 04:47 WBC Hgb Hct [place] % (Auto) 8.5 H Seg Neutrophils % 72.2 H POC ABG pO2 156 H BUN 7 L Creatinine 0.7 L Glucose POC Glucose Calcium 7.9 L Total Protein Albumin
[2016-10-07] MEDS: HEPARIN SUB-Q SCH ×3 (06:55→22:16)
[2016-10-07] MEDS: PEPCID PO SCH ×2 (13:17→22:15)
--- NOTE | 2016-10-07 15:07 | Progress Note ---
Assessment and Plan Assessment and plan: Drug overdose as suicidal attempt. Details unclear, but apparently told paramedics he took trazodone and other medications. He was intubated now extubated . CT head unremarkable. Suicide attempt. Consulted psych. On 1012 status. Acute respiratory failure. Was intubated, sedated with Propofol infusion, now extubated. Pulmonology following. DVT prophylaxis with Heparin subcut Full code status. Amphetamine abuse. Urine drug screen positive for amphetamines. He is medically stable for discharge to Psych History Interval history: patient with suicidal attempt by drug overdose, was intubated in emergency department, now extubated says he cannot remember what happened Hospitalist Physical - Physical exam Narrative exam: Gen appearance: not in distress HEENT: Normocephalic,atraumatic Neck : supple, no JVD Lungs: Clear to auscultation bilaterally, no crackles or wheezes Heart : S1 and S2 regular, no murmurs rubs or gallop, Abdomen: soft nontender, nondistended, normal bowel sounds Extremities: No edema, no clubbing or cyanosis, Neuro : awake,alert - Constitutional Vitals: Temp Pulse Resp BP Pulse Ox 98.3 F 80 14 113/67 94 10/07/16 12:00 10/07/16 12:00 10/07/16 12:00 10/07/16 12:00 10/07/16 12:00 Results - Labs CBC & Chem 7: 10/06/16 04:47 10/06/16 04:47 Labs: Laboratory Last Values WBC 9.8 K/mm3 (4.5-11.0) 10/06/16 04:47 RBC 4.24 M/mm3 (3.65-5.03) 10/06/16 04:47 Hgb 12.2 gm/dl (11.8-15.2) 10/06/16 04:47 Hct 37.8 % (35.5-45.6) 10/06/16 04:47 MCV 89 fl (84-94) 10/06/16 04:47 MCH 29 pg (28-32) 10/06/16 04:47 MCHC 32 % (32-34) 10/06/16 04:47 RDW 14.0 % (13.2-15.2) 10/06/16 04:47 Plt Count 249 K/mm3 (140-440) 10/06/16 04:47 Lymph % (Auto) 14.7 % (13.4-35.0) 10/06/16 04:47 [place] % (Auto) 8.5 % (0.0-7.3) H 10/06/16 04:47 Eos % (Auto) 3.8 % (0.0-4.3) 10/06/16 04:47 Baso % (Auto) 0.8 % (0.0-1.8) 10/06/16 04:47 Lymph # 1.4 K/mm3 (1.2-5.4) 10/06/16 04:47 [place] # 0.8 K/mm3 (0.0-0.8) 10/06/16 04:47 Eos # 0.4 K/mm3 (0.0-0.4) 10/06/16 04:47 Baso # 0.1 K/mm3 (0.0-0.1) 10/06/16 04:47 Seg Neutrophils % 72.2 % (40.0-70.0) H 10/06/16 04:47 Seg Neutrophils # 7.1 K/mm3 (1.8-7.7) 10/06/16 04:47 POC ABG pH 7.439 (7.35-7.45) 10/05/16 06:18 POC ABG pCO2 37.3 (35-45) 10/05/16 06:18 POC ABG pO2 156 (80-105) H 10/05/16 06:18 POC ABG HCO3 25.3 10/05/16 06:18 POC ABG Total CO2 26 10/05/16 06:18 POC ABG O2 Sat 99 10/05/16 06:18 POC ABG Base Excess 1 10/05/16 06:18 FiO2 35 % 10/05/16 06:18 Sodium 141 mmol/L (137-145) 10/06/16 04:47 Potassium 3.9 mmol/L (3.6-5.0) 10/06/16 04:47 Chloride 104.1 mmol/L (98-107) 10/06/16 04:47 Carbon Dioxide 25 mmol/L (22-30) 10/06/16 04:47 Anion Gap 16 mmol/L 10/06/16 04:47 BUN 7 mg/dL (9-20) L 10/06/16 04:47 Creatinine 0.7 mg/dL (0.8-1.5) L 10/06/16 04:47 Estimated GFR > 60 ml/min 10/06/16 04:47 BUN/Creatinine Ratio 10.00 % 10/06/16 04:47 Glucose 90 mg/dL (75-100) 10/06/16 04:47 POC Glucose 125 (70-105) H 10/07/16 12:26 Calcium 7.9 mg/dL (8.4-10.2) L 10/06/16 04:47 Phosphorus 2.7 mg/dL (2.5-4.5) 10/04/16 07:55 Magnesium 2.2 mg/dL (1.7-2.3) 10/04/16 07:55 Total Bilirubin 0.4 mg/dL (0.1-1.2) 10/04/16 07:55 AST 15 units/L (5-40) 10/04/16 07:55 ALT 12 units/L (7-56) 10/04/16 07:55 Alkaline Phosphatase 65 units/L (35-129) 10/04/16 07:55 Total Creatine Kinase 260 units/L (55-170) H 10/03/16 14:48 Total Protein 5.7 g/dL (6.3-8.2) L 10/04/16 07:55 Albumin 3.4 g/dL (3.9-5) L 10/04/16 07:55 Albumin/Globulin Ratio 1.5 % 10/04/16 07:55 TSH 3.430 mlU/mL (0.270-4.200) 10/03/16 14:48 Urine Color Yellow (Yellow) 10/03/16 15:14 Urine Turbidity Clear (Clear) 10/03/16 15:14 Urine pH 5.0 (5.0-7.0) 10/03/16 15:14 Ur Specific [place] 1.026 (1.003-1.030) 10/03/16 15:14 Urine Protein <15 mg/dl mg/dL (Negative) 10/03/16 15:14 Urine Glucose (UA) Neg mg/dL (Negative) 10/03/16 15:14 Urine Ketones 20 mg/dL (Negative) 10/03/16 15:14 Urine Blood Neg (Negative) 10/03/16 15:14 Urine Nitrite Neg (Negative) 10/03/16 15:14 Urine Bilirubin Neg (Negative) 10/03/16 15:14 Urine Urobilinogen < 2.0 mg/dL (<2.0) 10/03/16 15:14 Ur Leukocyte Esterase Neg (Negative) 10/03/16 15:14 Urine WBC (Auto) 1.0 /HPF (0.0-6.0) 10/03/16 15:14 Urine RBC (Auto) 4.0 /HPF (0.0-6.0) 10/03/16 15:14 Hyaline Casts 7 /LPF 10/03/16 15:14 Urine Mucus 3+ /HPF 10/03/16 15:14 Salicylates < 0.3 mg/dL (2.8-20.0) L 10/03/16 14:48 Urine Opiates Screen Presumptive negative 10/03/16 15:14 Urine Methadone Screen Presumptive negative 10/03/16 15:14 Acetaminophen < 15.0 ug/mL (10.0-30.0) 10/03/16 14:48 Ur Barbiturates Screen Presumptive negative 10/03/16 15:14 Valproic Acid < 2.8 ug/mL (50-100) L 10/03/16 14:48 Ur Phencyclidine Scrn Presumptive negative 10/03/16 15:14 Ur Amphetamines Screen Presumptive positive 10/03/16 15:14 U Benzodiazepines Scrn Presumptive positive 10/03/16 15:14 [place] 0.1 mmol/L (0.0-1.2) 10/03/16 14:48 Urine Cocaine Screen Presumptive negative 10/03/16 15:14 U Marijuana (THC) Screen Presumptive negative 10/03/16 15:14 Drugs of Abuse Note Disclamer 10/03/16 15:14 Plasma/Serum Alcohol < 0.01 gm% (0-0.07) 10/03/16 14:48
--- NOTE | 2016-10-07 15:12 | Discharge Summary ---
Providers - Providers Date of Admission: 10/03/16 16:27 Date of discharge: 10/07/16 Attending physician: DEMARCUS HALL 10/04/16 11:14 Consult to Mental Health [CONS] Routine Reason For Exam: suicide attempt by drug overdose Place consult to:: Psych Notified:: yes Phone number called:: [phone] If yes, spoke with:: johana Time called:: 11:50 10/06/16 10:46 Speech Therapy Evaluation and Treat [CONS] Routine Reason For Exam: previously extubated Primary care physician: WALT JIMENEZ MD Hospitalization Condition: Critical Disposition: DC/TX PSY HOSP/PSY UNIT - Discharge Diagnoses (1) Drug overdose Status: Acute Qualifiers: Encounter type: E Injury intent: I (2) Acute respiratory failure Status: Acute Qualifiers: Respiratory failure complication: R Exam - Constitutional Vitals: Temp Pulse Resp BP Pulse Ox 98.3 F 80 14 113/67 94 10/07/16 12:00 10/07/16 12:00 10/07/16 12:00 10/07/16 12:00 10/07/16 12:00 Plan Activity: no restrictions Diet: regular Additional Instructions: 1.F Follow up with: WALT JIMENEZ MD [Primary Care Provider] - 3-5 Days
--- NOTE | 2016-10-07 15:54 | Progress Note ---
Assessment and Plan 46 y/o male with suicide attempt, acute respiratory failure and history of underlying psych disorder. 1. Stable on room air. Will sign off. Subjective Date of service: 10/07/16 Interval history: successful transition out of ICU Objective Vital Signs - 12hr 10/07/16 10/07/16 10/07/16 05:30 08:00 10:00 Temperature 97.7 F 98.0 F Pulse Rate [ 79 From Monitor] Pulse Rate [ 86 Left Radial] Respiratory 20 16 Rate Blood Pressure 111/75 101/56 [Left Arm] O2 Sat by Pulse 97 96 97 Oximetry 10/07/16 12:00 Temperature 98.3 F Pulse Rate [ From Monitor] Pulse Rate [ 80 Left Radial] Respiratory 14 Rate Blood Pressure 113/67 [Left Arm] O2 Sat by Pulse 94 Oximetry Constitutional: comatose Eyes: non-icteric ENT: other (orally intubated, OG tube in place with charcoal in it) Neck: supple Ascultation: Bilateral: clear Percussion: Bilateral: not dull Cardiovascular: regular rate and rhythm Gastrointestinal: normoactive bowel sounds Extremities: no cyanosis, no edema CBC and BMP: 10/06/16 04:47 10/06/16 04:47 ABG, PT/INR, D-dimer: ABG POC ABG pH 7.439 (7.35-7.45) 10/05/16 06:18 POC ABG pCO2 37.3 (35-45) 10/05/16 06:18 POC ABG pO2 156 (80-105) H 10/05/16 06:18 POC ABG HCO3 25.3 10/05/16 06:18 POC ABG Total CO2 26 10/05/16 06:18 POC ABG O2 Sat 99 10/05/16 06:18 Abnormal lab findings: Abnormal Labs 10/03/16 10/04/16 10/04/16 18:41 04:51 07:55 WBC 11.3 H Hgb 11.6 L Hct 35.3 L [place] % (Auto) Seg Neutrophils % POC ABG pO2 135 H BUN Creatinine Glucose POC Glucose 130 H Calcium Total Protein Albumin 10/04/16 10/04/16 10/04/16 07:55 11:07 23:32 WBC Hgb Hct [place] % (Auto) Seg Neutrophils % POC ABG pO2 BUN 8 L Creatinine 0.7 L Glucose 104 H POC Glucose 112 H 109 H Calcium 7.7 L Total Protein 5.7 L Albumin 3.4 L 10/05/16 10/06/16 10/06/16 06:18 04:47 04:47 WBC Hgb Hct [place] % (Auto) 8.5 H Seg Neutrophils % 72.2 H POC ABG pO2 156 H BUN 7 L Creatinine 0.7 L Glucose POC Glucose Calcium 7.9 L Total Protein Albumin 10/07/16 12:26 WBC Hgb Hct [place] % (Auto) Seg Neutrophils % POC ABG pO2 BUN Creatinine Glucose POC Glucose 125 H Calcium Total Protein Albumin
[2016-10-08] MEDS: HEPARIN SUB-Q SCH ×3 (05:32→21:46)
[2016-10-08] MEDS: PEPCID PO SCH ×2 (10:36→21:46)
--- NOTE | 2016-10-08 14:50 | Progress Note ---
Assessment and Plan Assessment and plan: Drug overdose as suicidal attempt. Details unclear, but apparently told paramedics he took trazodone and other medications. He was intubated now extubated . CT head unremarkable. Suicide attempt. Consulted psych. On 1012 status. Acute respiratory failure. Was intubated, sedated with Propofol infusion, now extubated. Pulmonology following. DVT prophylaxis with Heparin subcut Full code status. Amphetamine abuse. Urine drug screen positive for amphetamines. He is medically stable for discharge to Psych History Interval history: patient with suicidal attempt by drug overdose, was intubated in emergency department, now extubated says he cannot remember what happened. Patient states he wants to go home Hospitalist Physical - Physical exam Narrative exam: Gen appearance: not in distress HEENT: Normocephalic,atraumatic Neck : supple, no JVD Lungs: Clear to auscultation bilaterally, no crackles or wheezes Heart : S1 and S2 regular, no murmurs rubs or gallop, Abdomen: soft nontender, nondistended, normal bowel sounds Extremities: No edema, no clubbing or cyanosis, Neuro : awake,alert,oriented, normal speech, no focal neurologic signs - Constitutional Vitals: Temp Pulse Resp BP Pulse Ox 98.1 F 78 16 109/69 97 10/08/16 07:35 10/08/16 10:37 10/08/16 10:37 10/08/16 07:00 10/08/16 07:00 Results - Labs CBC & Chem 7: 10/06/16 04:47 10/06/16 04:47 Labs: Laboratory Last Values WBC 9.8 K/mm3 (4.5-11.0) 10/06/16 04:47 RBC 4.24 M/mm3 (3.65-5.03) 10/06/16 04:47 Hgb 12.2 gm/dl (11.8-15.2) 10/06/16 04:47 Hct 37.8 % (35.5-45.6) 10/06/16 04:47 MCV 89 fl (84-94) 10/06/16 04:47 MCH 29 pg (28-32) 10/06/16 04:47 MCHC 32 % (32-34) 10/06/16 04:47 RDW 14.0 % (13.2-15.2) 10/06/16 04:47 Plt Count 249 K/mm3 (140-440) 10/06/16 04:47 Lymph % (Auto) 14.7 % (13.4-35.0) 10/06/16 04:47 [place] % (Auto) 8.5 % (0.0-7.3) H 10/06/16 04:47 Eos % (Auto) 3.8 % (0.0-4.3) 10/06/16 04:47 Baso % (Auto) 0.8 % (0.0-1.8) 10/06/16 04:47 Lymph # 1.4 K/mm3 (1.2-5.4) 10/06/16 04:47 [place] # 0.8 K/mm3 (0.0-0.8) 10/06/16 04:47 Eos # 0.4 K/mm3 (0.0-0.4) 10/06/16 04:47 Baso # 0.1 K/mm3 (0.0-0.1) 10/06/16 04:47 Seg Neutrophils % 72.2 % (40.0-70.0) H 10/06/16 04:47 Seg Neutrophils # 7.1 K/mm3 (1.8-7.7) 10/06/16 04:47 POC ABG pH 7.439 (7.35-7.45) 10/05/16 06:18 POC ABG pCO2 37.3 (35-45) 10/05/16 06:18 POC ABG pO2 156 (80-105) H 10/05/16 06:18 POC ABG HCO3 25.3 10/05/16 06:18 POC ABG Total CO2 26 10/05/16 06:18 POC ABG O2 Sat 99 10/05/16 06:18 POC ABG Base Excess 1 10/05/16 06:18 FiO2 35 % 10/05/16 06:18 Sodium 141 mmol/L (137-145) 10/06/16 04:47 Potassium 3.9 mmol/L (3.6-5.0) 10/06/16 04:47 Chloride 104.1 mmol/L (98-107) 10/06/16 04:47 Carbon Dioxide 25 mmol/L (22-30) 10/06/16 04:47 Anion Gap 16 mmol/L 10/06/16 04:47 BUN 7 mg/dL (9-20) L 10/06/16 04:47 Creatinine 0.7 mg/dL (0.8-1.5) L 10/06/16 04:47 Estimated GFR > 60 ml/min 10/06/16 04:47 BUN/Creatinine Ratio 10.00 % 10/06/16 04:47 Glucose 90 mg/dL (75-100) 10/06/16 04:47 POC Glucose 103 (70-105) 10/08/16 11:50 Calcium 7.9 mg/dL (8.4-10.2) L 10/06/16 04:47 Phosphorus 2.7 mg/dL (2.5-4.5) 10/04/16 07:55 Magnesium 2.2 mg/dL (1.7-2.3) 10/04/16 07:55 Total Bilirubin 0.4 mg/dL (0.1-1.2) 10/04/16 07:55 AST 15 units/L (5-40) 10/04/16 07:55 ALT 12 units/L (7-56) 10/04/16 07:55 Alkaline Phosphatase 65 units/L (35-129) 10/04/16 07:55 Total Creatine Kinase 260 units/L (55-170) H 10/03/16 14:48 Total Protein 5.7 g/dL (6.3-8.2) L 10/04/16 07:55 Albumin 3.4 g/dL (3.9-5) L 10/04/16 07:55 Albumin/Globulin Ratio 1.5 % 10/04/16 07:55 TSH 3.430 mlU/mL (0.270-4.200) 10/03/16 14:48 Urine Color Yellow (Yellow) 10/03/16 15:14 Urine Turbidity Clear (Clear) 10/03/16 15:14 Urine pH 5.0 (5.0-7.0) 10/03/16 15:14 Ur Specific [place] 1.026 (1.003-1.030) 10/03/16 15:14 Urine Protein <15 mg/dl mg/dL (Negative) 10/03/16 15:14 Urine Glucose (UA) Neg mg/dL (Negative) 10/03/16 15:14 Urine Ketones 20 mg/dL (Negative) 10/03/16 15:14 Urine Blood Neg (Negative) 10/03/16 15:14 Urine Nitrite Neg (Negative) 10/03/16 15:14 Urine Bilirubin Neg (Negative) 10/03/16 15:14 Urine Urobilinogen < 2.0 mg/dL (<2.0) 10/03/16 15:14 Ur Leukocyte Esterase Neg (Negative) 10/03/16 15:14 Urine WBC (Auto) 1.0 /HPF (0.0-6.0) 10/03/16 15:14 Urine RBC (Auto) 4.0 /HPF (0.0-6.0) 10/03/16 15:14 Hyaline Casts 7 /LPF 10/03/16 15:14 Urine Mucus 3+ /HPF 10/03/16 15:14 Salicylates < 0.3 mg/dL (2.8-20.0) L 10/03/16 14:48 Urine Opiates Screen Presumptive negative 10/03/16 15:14 Urine Methadone Screen Presumptive negative 10/03/16 15:14 Acetaminophen < 15.0 ug/mL (10.0-30.0) 10/03/16 14:48 Ur Barbiturates Screen Presumptive negative 10/03/16 15:14 Valproic Acid < 2.8 ug/mL (50-100) L 10/03/16 14:48 Ur Phencyclidine Scrn Presumptive negative 10/03/16 15:14 Ur Amphetamines Screen Presumptive positive 10/03/16 15:14 U Benzodiazepines Scrn Presumptive positive 10/03/16 15:14 [place] 0.1 mmol/L (0.0-1.2) 10/03/16 14:48 Urine Cocaine Screen Presumptive negative 10/03/16 15:14 U Marijuana (THC) Screen Presumptive negative 10/03/16 15:14 Drugs of Abuse Note Disclamer 10/03/16 15:14 Plasma/Serum Alcohol < 0.01 gm% (0-0.07) 10/03/16 14:48
[2016-10-08] MEDS: HALDOL IM PRN (16:33)
[2016-10-09] MEDS: HEPARIN SUB-Q SCH ×3 (05:34→22:35)
[2016-10-09] MEDS: PEPCID PO SCH ×2 (10:41→22:35)
--- NOTE | 2016-10-09 13:11 | Progress Note ---
Assessment and Plan Assessment and plan: Drug overdose as suicidal attempt. Details unclear, but apparently told paramedics he took trazodone and other medications. He was intubated now extubated . CT head unremarkable. Suicide attempt. Consulted psych. On 1012 status. Patient was evaluated by psych staff and they recommend transfer to inpatient psych Acute respiratory failure. Was intubated,now extubated. Pulmonology following. DVT prophylaxis with Heparin subcut Full code status. Amphetamine abuse. Urine drug screen positive for amphetamines. He is medically stable for discharge to Psych History Interval history: patient with suicidal attempt by drug overdose, was intubated in emergency department, now extubated says he cannot remember what happened. Patient states he wants to go home Hospitalist Physical - Physical exam Narrative exam: Gen appearance: not in distress HEENT: Normocephalic,atraumatic Neck : supple, no JVD Lungs: Clear to auscultation bilaterally, no crackles or wheezes Heart : S1 and S2 regular, no murmurs rubs or gallop, Abdomen: soft nontender, nondistended, normal bowel sounds Extremities: No edema, no clubbing or cyanosis, Neuro : awake,alert,oriented, normal speech, no focal neurologic signs Psych: calm Skin: no rash - Constitutional Vitals: Temp Pulse Resp BP Pulse Ox 97.9 F 70 18 109/75 96 10/09/16 08:40 10/09/16 11:59 10/09/16 11:59 10/09/16 08:40 10/08/16 16:00 Results - Labs CBC & Chem 7: 10/06/16 04:47 10/06/16 04:47 Labs: Laboratory Last Values WBC 9.8 K/mm3 (4.5-11.0) 10/06/16 04:47 RBC 4.24 M/mm3 (3.65-5.03) 10/06/16 04:47 Hgb 12.2 gm/dl (11.8-15.2) 10/06/16 04:47 Hct 37.8 % (35.5-45.6) 10/06/16 04:47 MCV 89 fl (84-94) 10/06/16 04:47 MCH 29 pg (28-32) 10/06/16 04:47 MCHC 32 % (32-34) 10/06/16 04:47 RDW 14.0 % (13.2-15.2) 10/06/16 04:47 Plt Count 249 K/mm3 (140-440) 10/06/16 04:47 Lymph % (Auto) 14.7 % (13.4-35.0) 10/06/16 04:47 [place] % (Auto) 8.5 % (0.0-7.3) H 10/06/16 04:47 Eos % (Auto) 3.8 % (0.0-4.3) 10/06/16 04:47 Baso % (Auto) 0.8 % (0.0-1.8) 10/06/16 04:47 Lymph # 1.4 K/mm3 (1.2-5.4) 10/06/16 04:47 [place] # 0.8 K/mm3 (0.0-0.8) 10/06/16 04:47 Eos # 0.4 K/mm3 (0.0-0.4) 10/06/16 04:47 Baso # 0.1 K/mm3 (0.0-0.1) 10/06/16 04:47 Seg Neutrophils % 72.2 % (40.0-70.0) H 10/06/16 04:47 Seg Neutrophils # 7.1 K/mm3 (1.8-7.7) 10/06/16 04:47 POC ABG pH 7.439 (7.35-7.45) 10/05/16 06:18 POC ABG pCO2 37.3 (35-45) 10/05/16 06:18 POC ABG pO2 156 (80-105) H 10/05/16 06:18 POC ABG HCO3 25.3 10/05/16 06:18 POC ABG Total CO2 26 10/05/16 06:18 POC ABG O2 Sat 99 10/05/16 06:18 POC ABG Base Excess 1 10/05/16 06:18 FiO2 35 % 10/05/16 06:18 Sodium 141 mmol/L (137-145) 10/06/16 04:47 Potassium 3.9 mmol/L (3.6-5.0) 10/06/16 04:47 Chloride 104.1 mmol/L (98-107) 10/06/16 04:47 Carbon Dioxide 25 mmol/L (22-30) 10/06/16 04:47 Anion Gap 16 mmol/L 10/06/16 04:47 BUN 7 mg/dL (9-20) L 10/06/16 04:47 Creatinine 0.7 mg/dL (0.8-1.5) L 10/06/16 04:47 Estimated GFR > 60 ml/min 10/06/16 04:47 BUN/Creatinine Ratio 10.00 % 10/06/16 04:47 Glucose 90 mg/dL (75-100) 10/06/16 04:47 POC Glucose 103 (70-105) 10/08/16 11:50 Calcium 7.9 mg/dL (8.4-10.2) L 10/06/16 04:47 Phosphorus 2.7 mg/dL (2.5-4.5) 10/04/16 07:55 Magnesium 2.2 mg/dL (1.7-2.3) 10/04/16 07:55 Total Bilirubin 0.4 mg/dL (0.1-1.2) 10/04/16 07:55 AST 15 units/L (5-40) 10/04/16 07:55 ALT 12 units/L (7-56) 10/04/16 07:55 Alkaline Phosphatase 65 units/L (35-129) 10/04/16 07:55 Total Creatine Kinase 260 units/L (55-170) H 10/03/16 14:48 Total Protein 5.7 g/dL (6.3-8.2) L 10/04/16 07:55 Albumin 3.4 g/dL (3.9-5) L 10/04/16 07:55 Albumin/Globulin Ratio 1.5 % 10/04/16 07:55 TSH 3.430 mlU/mL (0.270-4.200) 10/03/16 14:48 Urine Color Yellow (Yellow) 10/03/16 15:14 Urine Turbidity Clear (Clear) 10/03/16 15:14 Urine pH 5.0 (5.0-7.0) 10/03/16 15:14 Ur Specific [place] 1.026 (1.003-1.030) 10/03/16 15:14 Urine Protein <15 mg/dl mg/dL (Negative) 10/03/16 15:14 Urine Glucose (UA) Neg mg/dL (Negative) 10/03/16 15:14 Urine Ketones 20 mg/dL (Negative) 10/03/16 15:14 Urine Blood Neg (Negative) 10/03/16 15:14 Urine Nitrite Neg (Negative) 10/03/16 15:14 Urine Bilirubin Neg (Negative) 10/03/16 15:14 Urine Urobilinogen < 2.0 mg/dL (<2.0) 10/03/16 15:14 Ur Leukocyte Esterase Neg (Negative) 10/03/16 15:14 Urine WBC (Auto) 1.0 /HPF (0.0-6.0) 10/03/16 15:14 Urine RBC (Auto) 4.0 /HPF (0.0-6.0) 10/03/16 15:14 Hyaline Casts 7 /LPF 10/03/16 15:14 Urine Mucus 3+ /HPF 10/03/16 15:14 Salicylates < 0.3 mg/dL (2.8-20.0) L 10/03/16 14:48 Urine Opiates Screen Presumptive negative 10/03/16 15:14 Urine Methadone Screen Presumptive negative 10/03/16 15:14 Acetaminophen < 15.0 ug/mL (10.0-30.0) 10/03/16 14:48 Ur Barbiturates Screen Presumptive negative 10/03/16 15:14 Valproic Acid < 2.8 ug/mL (50-100) L 10/03/16 14:48 Ur Phencyclidine Scrn Presumptive negative 10/03/16 15:14 Ur Amphetamines Screen Presumptive positive 10/03/16 15:14 U Benzodiazepines Scrn Presumptive positive 10/03/16 15:14 [place] 0.1 mmol/L (0.0-1.2) 10/03/16 14:48 Urine Cocaine Screen Presumptive negative 10/03/16 15:14 U Marijuana (THC) Screen Presumptive negative 10/03/16 15:14 Drugs of Abuse Note Disclamer 10/03/16 15:14 Plasma/Serum Alcohol < 0.01 gm% (0-0.07) 10/03/16 14:48
[2016-10-09] MEDS: D5NS 1,000 ML IV SCH (14:24)
[2016-10-09] MEDS: HALDOL IM PRN (17:38)
[2016-10-10] MEDS: HEPARIN SUB-Q SCH ×2 (06:09→13:51)
[2016-10-10] MEDS: PEPCID PO SCH (09:36)
--- NOTE | 2016-10-10 13:10 | Progress Note ---
Assessment and Plan Assessment and plan: Drug overdose as suicidal attempt. Details unclear, but apparently told paramedics he took trazodone and other medications. He was intubated now extubated . CT head unremarkable. Suicide attempt. Psych following. Still on 1013 status. Patient was evaluated by psych staff and they recommend transfer to inpatient psych. Acute respiratory failure. Was intubated,now extubated. Pulmonology following. DVT prophylaxis with Heparin subcut Full code status. Amphetamine abuse. Urine drug screen positive for amphetamines. He is medically stable for discharge to Psych History Interval history: patient with suicidal attempt by drug overdose, was intubated in emergency department, now extubated says he cannot remember what happened. Patient states he wants to go home, that he does not want to go to psych facility Hospitalist Physical - Physical exam Narrative exam: Gen appearance: not in distress HEENT: Normocephalic,atraumatic Neck : supple, no JVD Lungs: Clear to auscultation bilaterally, no crackles or wheezes Heart : S1 and S2 regular, no murmurs rubs or gallop, Abdomen: soft nontender, nondistended, normal bowel sounds Extremities: No edema, no clubbing or cyanosis, Neuro : awake,alert,oriented, normal speech, no focal neurologic signs Psych: calm Skin: no rash - Constitutional Vitals: Temp Pulse Resp BP Pulse Ox 97.6 F 82 18 108/63 97 10/10/16 00:00 10/10/16 00:00 10/10/16 00:00 10/10/16 00:00 10/10/16 00:00 Results - Labs CBC & Chem 7: 10/06/16 04:47 10/06/16 04:47 Labs: Laboratory Last Values WBC 9.8 K/mm3 (4.5-11.0) 10/06/16 04:47 RBC 4.24 M/mm3 (3.65-5.03) 10/06/16 04:47 Hgb 12.2 gm/dl (11.8-15.2) 10/06/16 04:47 Hct 37.8 % (35.5-45.6) 10/06/16 04:47 MCV 89 fl (84-94) 10/06/16 04:47 MCH 29 pg (28-32) 10/06/16 04:47 MCHC 32 % (32-34) 10/06/16 04:47 RDW 14.0 % (13.2-15.2) 10/06/16 04:47 Plt Count 249 K/mm3 (140-440) 10/06/16 04:47 Lymph % (Auto) 14.7 % (13.4-35.0) 10/06/16 04:47 [place] % (Auto) 8.5 % (0.0-7.3) H 10/06/16 04:47 Eos % (Auto) 3.8 % (0.0-4.3) 10/06/16 04:47 Baso % (Auto) 0.8 % (0.0-1.8) 10/06/16 04:47 Lymph # 1.4 K/mm3 (1.2-5.4) 10/06/16 04:47 [place] # 0.8 K/mm3 (0.0-0.8) 10/06/16 04:47 Eos # 0.4 K/mm3 (0.0-0.4) 10/06/16 04:47 Baso # 0.1 K/mm3 (0.0-0.1) 10/06/16 04:47 Seg Neutrophils % 72.2 % (40.0-70.0) H 10/06/16 04:47 Seg Neutrophils # 7.1 K/mm3 (1.8-7.7) 10/06/16 04:47 POC ABG pH 7.439 (7.35-7.45) 10/05/16 06:18 POC ABG pCO2 37.3 (35-45) 10/05/16 06:18 POC ABG pO2 156 (80-105) H 10/05/16 06:18 POC ABG HCO3 25.3 10/05/16 06:18 POC ABG Total CO2 26 10/05/16 06:18 POC ABG O2 Sat 99 10/05/16 06:18 POC ABG Base Excess 1 10/05/16 06:18 FiO2 35 % 10/05/16 06:18 Sodium 141 mmol/L (137-145) 10/06/16 04:47 Potassium 3.9 mmol/L (3.6-5.0) 10/06/16 04:47 Chloride 104.1 mmol/L (98-107) 10/06/16 04:47 Carbon Dioxide 25 mmol/L (22-30) 10/06/16 04:47 Anion Gap 16 mmol/L 10/06/16 04:47 BUN 7 mg/dL (9-20) L 10/06/16 04:47 Creatinine 0.7 mg/dL (0.8-1.5) L 10/06/16 04:47 Estimated GFR > 60 ml/min 10/06/16 04:47 BUN/Creatinine Ratio 10.00 % 10/06/16 04:47 Glucose 90 mg/dL (75-100) 10/06/16 04:47 POC Glucose 103 (70-105) 10/08/16 11:50 Calcium 7.9 mg/dL (8.4-10.2) L 10/06/16 04:47 Phosphorus 2.7 mg/dL (2.5-4.5) 10/04/16 07:55 Magnesium 2.2 mg/dL (1.7-2.3) 10/04/16 07:55 Total Bilirubin 0.4 mg/dL (0.1-1.2) 10/04/16 07:55 AST 15 units/L (5-40) 10/04/16 07:55 ALT 12 units/L (7-56) 10/04/16 07:55 Alkaline Phosphatase 65 units/L (35-129) 10/04/16 07:55 Total Creatine Kinase 260 units/L (55-170) H 10/03/16 14:48 Total Protein 5.7 g/dL (6.3-8.2) L 10/04/16 07:55 Albumin 3.4 g/dL (3.9-5) L 10/04/16 07:55 Albumin/Globulin Ratio 1.5 % 10/04/16 07:55 TSH 3.430 mlU/mL (0.270-4.200) 10/03/16 14:48 Urine Color Yellow (Yellow) 10/03/16 15:14 Urine Turbidity Clear (Clear) 10/03/16 15:14 Urine pH 5.0 (5.0-7.0) 10/03/16 15:14 Ur Specific [place] 1.026 (1.003-1.030) 10/03/16 15:14 Urine Protein <15 mg/dl mg/dL (Negative) 10/03/16 15:14 Urine Glucose (UA) Neg mg/dL (Negative) 10/03/16 15:14 Urine Ketones 20 mg/dL (Negative) 10/03/16 15:14 Urine Blood Neg (Negative) 10/03/16 15:14 Urine Nitrite Neg (Negative) 10/03/16 15:14 Urine Bilirubin Neg (Negative) 10/03/16 15:14 Urine Urobilinogen < 2.0 mg/dL (<2.0) 10/03/16 15:14 Ur Leukocyte Esterase Neg (Negative) 10/03/16 15:14 Urine WBC (Auto) 1.0 /HPF (0.0-6.0) 10/03/16 15:14 Urine RBC (Auto) 4.0 /HPF (0.0-6.0) 10/03/16 15:14 Hyaline Casts 7 /LPF 10/03/16 15:14 Urine Mucus 3+ /HPF 10/03/16 15:14 Salicylates < 0.3 mg/dL (2.8-20.0) L 10/03/16 14:48 Urine Opiates Screen Presumptive negative 10/03/16 15:14 Urine Methadone Screen Presumptive negative 10/03/16 15:14 Acetaminophen < 15.0 ug/mL (10.0-30.0) 10/03/16 14:48 Ur Barbiturates Screen Presumptive negative 10/03/16 15:14 Valproic Acid < 2.8 ug/mL (50-100) L 10/03/16 14:48 Ur Phencyclidine Scrn Presumptive negative 10/03/16 15:14 Ur Amphetamines Screen Presumptive positive 10/03/16 15:14 U Benzodiazepines Scrn Presumptive positive 10/03/16 15:14 [place] 0.1 mmol/L (0.0-1.2) 10/03/16 14:48 Urine Cocaine Screen Presumptive negative 10/03/16 15:14 U Marijuana (THC) Screen Presumptive negative 10/03/16 15:14 Drugs of Abuse Note Disclamer 10/03/16 15:14 Plasma/Serum Alcohol < 0.01 gm% (0-0.07) 10/03/16 14:48
[2016-10-10 13:17] VITALS: BP 111/68
--- NOTE | 2016-10-10 14:55 | Discharge Summary ---
Providers - Providers Date of Admission: 10/03/16 16:27 Date of discharge: 10/10/16 Attending physician: DEMARCUS HALL 10/04/16 11:14 Consult to Mental Health [CONS] Routine Reason For Exam: suicide attempt by drug overdose Place consult to:: Psych Notified:: yes Phone number called:: [phone] If yes, spoke with:: johana Time called:: 11:50 10/06/16 10:46 Speech Therapy Evaluation and Treat [CONS] Routine Reason For Exam: previously extubated Primary care physician: [employer] Hospitalization Condition: Critical Disposition: DC/TX PSY HOSP/PSY UNIT - Discharge Diagnoses (1) Drug overdose Status: Acute Qualifiers: Encounter type: E Injury intent: I (2) Acute respiratory failure Status: Acute Qualifiers: Respiratory failure complication: R Core Measure Documentation - Palliative Care Palliative Care/ Comfort Measures: Not Applicable - Core Measures Any of the following diagnoses?: none Exam - Constitutional Vitals: Temp Pulse Resp BP Pulse Ox 98.1 F 68 20 111/68 97 10/10/16 08:15 10/10/16 08:15 10/10/16 08:15 10/10/16 08:15 10/10/16 08:15 Plan Activity: no restrictions Diet: regular Additional Instructions: 1. Follow up with Primary care physician or [facility] in 1 week Follow up with: WALT JIMENEZ MD [Primary Care Provider] - 3-5 Days
== END 2016-10-10 19:15 | DRG 917 ==
LOC: ED 13:24 → CC1 16:27 → 3A 10-06 17:43
PROVIDERS: ADMIT Internal Medicine; ATTEND Internal Medicine
PROC: 5A1945Z Respiratory Ventilation, 24-96 Consecutive Hours (ICD-10-PCS; principal; 2016-10-03)
PROC: 0BH17EZ Insertion of Endotracheal Airway into Trachea, Via Natural or Artificial Opening (ICD-10-PCS; 2016-10-03)
PROC: 4A033R1 Measurement of Arterial Saturation, Peripheral, Percutaneous Approach (ICD-10-PCS; 2016-10-03)
DX: T43.212A Poisoning by selective serotonin and norepinephrine reuptake inhibitors, intentional self-harm, initial encounter (principal); J96.00 Acute respiratory failure, unspecified whether with hypoxia or hypercapnia; F31.9 Bipolar disorder, unspecified; F15.10 Other stimulant abuse, uncomplicated; F99 Mental disorder, not otherwise specified; Y92.89 Other specified places as the place of occurrence of the external cause
CPT/HCPCS: 36415; 51702; 70450; 71010; 72125; 74000; 80048; 80053; 80164; 80178; 80307; 80320; 81001; 82550; 82803; 82962; 83735; 84100; 84443; 85025; 85027; 87070; 87205; 93005; 93010; 94002; 94003; 94760; 96374; 96375; 99406; G0480; J1630; J1644; J2704; J7030; J7042